=== PATIENT | female | born 1945 | race Caucasian/White ===

== ENCOUNTER → 2018-01-26 11:06 | Outpatient (REF) | payer MEDICARE, MEDICAID, SELFPAY ==
[2018-01-26 19:30] LABS: BUN 21 mg/dL (7-18); CREATININE 0.97 mg/dL (0.55-1.02); Calcium 9.2 mg/dL (8.5-10.1); Chloride 103 mmol/L (98-107); Cholesterol 255 mg/dL (50-200); Estimated GFR 56.77 (mL/min/1.73m2); Glucose 91 mg/dL (70-100); HDL Cholesterol 58 mg/dL (40-60); LDL CHOLESTEROL 189 mg/dL (<100); Potassium 5.2 mmol/L (3.5-5.1); Sodium 139 mmol/L (136-145); TSH 1.91 uIU/mL (0.358-3.74); Triglyceride 76 mg/dL (30-150)
== END ==
LOC: NCHCN 11:06
PROVIDERS: PCP Physician Assistant Medical; Visit Provider Physician Assistant Medical
DX: E03.9 Hypothyroidism, unspecified (principal); E78.5 Hyperlipidemia, unspecified
CPT/HCPCS: 80048; 80061; 83721; 84443

== ENCOUNTER 2018-11-06 09:40 | Outpatient (REF) | payer MEDICARE, MEDICAID, SELFPAY ==
[2018-11-06 23:11] LABS: Calculated LDL 159; Cholesterol 221 mg/dL (50-200); HDL Cholesterol 48 mg/dL (40-60); TSH 2.31 uIU/mL (0.358-3.74); Triglyceride 73 mg/dL (30-150)
== END 2018-11-06 10:00 ==
LOC: NCHCN 09:40
PROVIDERS: PCP Physician Assistant Medical; Visit Provider Physician Assistant Medical
DX: E03.9 Hypothyroidism, unspecified (principal); E78.5 Hyperlipidemia, unspecified
CPT/HCPCS: 80061; 83721; 84443

== ENCOUNTER 2019-10-07 17:06 | Observation (INO) | payer MEDICARE, MEDICAID, SELFPAY ==
[2019-10-07] VITALS (49 sets, daily range): BP systolic 136–188; BP diastolic 57–86; PULSE 78–109; RESP 13–27; TEMP 36.6–37; O2SAT 94–100
--- NOTE | 2019-10-07 17:10 | W.ED.GENAD ---
Discharge Plan Disposition Patient Disposition: [facility] INPATIENT Condition: Stable Discharge Details Chief Complaint: SOB Clinical Impression: Stable angina, Dyspnea on exertion Primary Care Provider: Dane Merino ED Provider: Skylar Lin Home Meds and New Rx's Prescriptions: No Action levothyroxine 25 MCG tablet 25 mcg PO DIRECTED RF: 0 levothyroxine 50 MCG tablet 50 mcg PO DIRECTED RF: 0 cholecalciferol (vitamin D3) 1,000 UNIT capsule 1,000 unit PO DAILY RF: 0 Medical Decision Making 1719 -- 74yo F w/ a h/o hypothyroidism who presents to the ED with a complaint of intermittent aching chest pain and dyspnea on exertion for the past 2 weeks. Patient denies any acute complaints at this time. EKG on arrival notes a rate of 84, sinus with no acute ST ischemic changes. History most concerning for stable angina. Considering patient's age and history, cardiac work-up ordered including CT chest and will plan for admission for serial troponins and possible stress test. Patient is agreeable for admission. Dose of aspirin ordered. 1919 --labs and imaging reviewed and unremarkable. Troponin negative. BNP and TSH within normal limits. CT chest negative. Patient reassessed and has no acute complaints. She is agreeable with plan for admission. Case discussed with hospitalist who accepts patient for admission. Tentative plan is for stress test in the a.m. Medical Records Medical records reviewed: Yes I reviewed the patient's medical records. Imaging Data Radiologic Study: Radiologist's impression: Laboratory Tests Range/Units 10/07/19 10/07/19 10/07/19 17:30 17:30 17:30 WBC (4.4-10.8) k/cumm 8.27 RBC (4.00-5.20) m/cumm 4.31 Hgb (12.0-15.5) g/dL 13.1 Hct (36.0-46.0) % 39.2 MCV (80-95) fL 91.0 MCH (27.0-33.0) pg 30.4 MCHC (32.0-36.0) g/dL 33.4 RDW (11.7-14.6) % 13.1 Plt Count (130-400) x1000/uL 217 MPV (8.0-11.0) fL 10.4 Immature Gran % % 0.0 Neutrophils % 43.0 Lymphocytes % 43.0 Atypical Lymphs % 5 Monocytes % 6.0 Eosinophils % 2.0 Basophils % 1.0 Absolute Neutrophils (1.2-6.7) k/cumm 3.56 Absolute Lymphocytes (1.2-3.4) k/cumm 3.97 H Absolute Monocytes (0.11-0.7) k/cumm 0.50 Absolute Eosinophils (0.0-0.7) k/cumm 0.17 Absolute Basophils (0.0-0.2) k/cumm 0.08 Differential Comment Manual differential RBC Morphology Normal Sodium (136-145) mmol/L 139 Potassium (3.5-5.1) mmol/L 3.9 Chloride (98-107) mmol/L 104 Carbon Dioxide (21.0-32.0) mmol/L 29.2 Anion Gap (3-11) mmol/L 5.8 BUN (7-18) mg/dL 16 Creatinine (0.55-1.02) mg/dL 1.03 H Estimated GFR/1.73 m2 (mL/min/1.73m2) 52.67 Glucose (74-106) mg/dL 110 H Calcium (8.5-10.1) mg/dL 9.1 Magnesium (1.8-2.4) mg/dL 2.1 Total Bilirubin (0.2-1.0) mg/dL 0.3 AST (15-37) U/L 14 L ALT (14-59) U/L 21 Alkaline Phosphatase (46-116) U/L 98 Troponin I (<0.06) ng/Ml < 0.05 NT-Pro-B Natriuret Pep (<300) pg/mL 198 Total Protein (6.4-8.2) g/dL 7.4 Albumin (3.4-5.0) g/dL 3.8 TSH (0.36-3.74) uIU/mL 2.21 Urine Color (Yellow) Urine Clarity (Clear) Urine pH (5-8) Ur Specific [place] (1.005-1.025) Urine Protein (Negative) mg/dL Urine Ketones (Negative) mg/dL Urine Blood (Negative) Urine Nitrite (Negative) Urine Bilirubin (Negative) Urine Urobilinogen (Up TO 0.2) EU/dL Ur Leukocyte Esterase (Negative) Urine RBC (0-2) HPF Urine WBC (0-5) HPF Ur Epithelial Cells (Negative) HPF Urine Crystals (Negative) HPF Urine Bacteria (Negative) HPF Urine Casts (Negative) LPF Urine Mucus (Negative) Ur Culture Indicated? Urine Glucose (Negative) mg/dL Range/Units 10/07/19 18:45 WBC (4.4-10.8) k/cumm RBC (4.00-5.20) m/cumm Hgb (12.0-15.5) g/dL Hct (36.0-46.0) % MCV (80-95) fL MCH (27.0-33.0) pg MCHC (32.0-36.0) g/dL RDW (11.7-14.6) % Plt Count (130-400) x1000/uL MPV (8.0-11.0) fL Immature Gran % % Neutrophils % Lymphocytes % Atypical Lymphs % Monocytes % Eosinophils % Basophils % Absolute Neutrophils (1.2-6.7) k/cumm Absolute Lymphocytes (1.2-3.4) k/cumm Absolute Monocytes (0.11-0.7) k/cumm Absolute Eosinophils (0.0-0.7) k/cumm Absolute Basophils (0.0-0.2) k/cumm Differential Comment RBC Morphology Sodium (136-145) mmol/L Potassium (3.5-5.1) mmol/L Chloride (98-107) mmol/L Carbon Dioxide (21.0-32.0) mmol/L Anion Gap (3-11) mmol/L BUN (7-18) mg/dL Creatinine (0.55-1.02) mg/dL Estimated GFR/1.73 m2 (mL/min/1.73m2) Glucose (74-106) mg/dL Calcium (8.5-10.1) mg/dL Magnesium (1.8-2.4) mg/dL Total Bilirubin (0.2-1.0) mg/dL AST (15-37) U/L ALT (14-59) U/L Alkaline Phosphatase (46-116) U/L Troponin I (<0.06) ng/Ml NT-Pro-B Natriuret Pep (<300) pg/mL Total Protein (6.4-8.2) g/dL Albumin (3.4-5.0) g/dL TSH (0.36-3.74) uIU/mL Urine Color (Yellow) Yellow Urine Clarity (Clear) Clear Urine pH (5-8) 7.0 Ur Specific [place] (1.005-1.025) 1.020 Urine Protein (Negative) mg/dL Negative Urine Ketones (Negative) mg/dL Negative Urine Blood (Negative) Trace-intact H Urine Nitrite (Negative) Negative Urine Bilirubin (Negative) Negative Urine Urobilinogen (Up TO 0.2) EU/dL 0.2 Ur Leukocyte Esterase (Negative) Negative Urine RBC (0-2) HPF 0-2 Urine WBC (0-5) HPF Negative Ur Epithelial Cells (Negative) HPF Rare Urine Crystals (Negative) HPF Negative Urine Bacteria (Negative) HPF Negative Urine Casts (Negative) LPF Negative Urine Mucus (Negative) Negative Ur Culture Indicated? No Urine Glucose (Negative) mg/dL Negative CT Angiography Chest With Contrast Exam date and time: 10/07/2019 5:53 PM Age: 74 years old Clinical indication: Other: Aching chest pain, SOB w/exertion TECHNIQUE: Imaging protocol: Computed tomographic angiography of the chest with intravenous contrast. 3D rendering: MIP and/or 3D reconstructed images were created by the technologist. Radiation optimization: All CT scans at this facility use at least one of these dose optimization techniques: automated exposure control; mA and/or kV adjustment per patient size (includes targeted exams where dose is matched to clinical indication); or iterative reconstruction. Contrast material: OMNIPAQUE 350; Contrast volume: 57 ml; Contrast route: IV; COMPARISON: No relevant prior studies available. FINDINGS: Pulmonary arteries: No acute pulmonary embolus. Aorta: No aortic aneurysm. No aortic dissection. Lungs: No consolidation. No masses. Pleural space: Biapical pleural parenchymal thickening/scarring. Heart: No cardiomegaly. No pericardial effusion. Lymph nodes: Unremarkable. No enlarged lymph nodes. Bones/joints: No acute fracture. Soft tissues: Unremarkable. IMPRESSION: No acute pulmonary embolus. Lab Data Lab results reviewed: Yes I reviewed the patient's lab results. Labs: Laboratory Tests Range/Units 10/07/19 10/07/19 10/07/19 17:30 17:30 17:30 WBC (4.4-10.8) k/cumm 8.27 RBC (4.00-5.20) m/cumm 4.31 Hgb (12.0-15.5) g/dL 13.1 Hct (36.0-46.0) % 39.2 MCV (80-95) fL 91.0 MCH (27.0-33.0) pg 30.4 MCHC (32.0-36.0) g/dL 33.4 RDW (11.7-14.6) % 13.1 Plt Count (130-400) x1000/uL 217 MPV (8.0-11.0) fL 10.4 Immature Gran % % 0.0 Neutrophils % 43.0 Lymphocytes % 43.0 Atypical Lymphs % 5 Monocytes % 6.0 Eosinophils % 2.0 Basophils % 1.0 Absolute Neutrophils (1.2-6.7) k/cumm 3.56 Absolute Lymphocytes (1.2-3.4) k/cumm 3.97 H Absolute Monocytes (0.11-0.7) k/cumm 0.50 Absolute Eosinophils (0.0-0.7) k/cumm 0.17 Absolute Basophils (0.0-0.2) k/cumm 0.08 Differential Comment Manual differential RBC Morphology Normal Sodium (136-145) mmol/L 139 Potassium (3.5-5.1) mmol/L 3.9 Chloride (98-107) mmol/L 104 Carbon Dioxide (21.0-32.0) mmol/L 29.2 Anion Gap (3-11) mmol/L 5.8 BUN (7-18) mg/dL 16 Creatinine (0.55-1.02) mg/dL 1.03 H Estimated GFR/1.73 m2 (mL/min/1.73m2) 52.67 Glucose (74-106) mg/dL 110 H Calcium (8.5-10.1) mg/dL 9.1 Magnesium (1.8-2.4) mg/dL 2.1 Total Bilirubin (0.2-1.0) mg/dL 0.3 AST (15-37) U/L 14 L ALT (14-59) U/L 21 Alkaline Phosphatase (46-116) U/L 98 Troponin I (<0.06) ng/Ml < 0.05 NT-Pro-B Natriuret Pep (<300) pg/mL 198 Total Protein (6.4-8.2) g/dL 7.4 Albumin (3.4-5.0) g/dL 3.8 TSH (0.36-3.74) uIU/mL 2.21 Urine Color (Yellow) Urine Clarity (Clear) Urine pH (5-8) Ur Specific [place] (1.005-1.025) Urine Protein (Negative) mg/dL Urine Ketones (Negative) mg/dL Urine Blood (Negative) Urine Nitrite (Negative) Urine Bilirubin (Negative) Urine Urobilinogen (Up TO 0.2) EU/dL Ur Leukocyte Esterase (Negative) Urine RBC (0-2) HPF Urine WBC (0-5) HPF Ur Epithelial Cells (Negative) HPF Urine Crystals (Negative) HPF Urine Bacteria (Negative) HPF Urine Casts (Negative) LPF Urine Mucus (Negative) Ur Culture Indicated? Urine Glucose (Negative) mg/dL Range/Units 10/07/19 18:45 WBC (4.4-10.8) k/cumm RBC (4.00-5.20) m/cumm Hgb (12.0-15.5) g/dL Hct (36.0-46.0) % MCV (80-95) fL MCH (27.0-33.0) pg MCHC (32.0-36.0) g/dL RDW (11.7-14.6) % Plt Count (130-400) x1000/uL MPV (8.0-11.0) fL Immature Gran % % Neutrophils % Lymphocytes % Atypical Lymphs % Monocytes % Eosinophils % Basophils % Absolute Neutrophils (1.2-6.7) k/cumm Absolute Lymphocytes (1.2-3.4) k/cumm Absolute Monocytes (0.11-0.7) k/cumm Absolute Eosinophils (0.0-0.7) k/cumm Absolute Basophils (0.0-0.2) k/cumm Differential Comment RBC Morphology Sodium (136-145) mmol/L Potassium (3.5-5.1) mmol/L Chloride (98-107) mmol/L Carbon Dioxide (21.0-32.0) mmol/L Anion Gap (3-11) mmol/L BUN (7-18) mg/dL Creatinine (0.55-1.02) mg/dL Estimated GFR/1.73 m2 (mL/min/1.73m2) Glucose (74-106) mg/dL Calcium (8.5-10.1) mg/dL Magnesium (1.8-2.4) mg/dL Total Bilirubin (0.2-1.0) mg/dL AST (15-37) U/L ALT (14-59) U/L Alkaline Phosphatase (46-116) U/L Troponin I (<0.06) ng/Ml NT-Pro-B Natriuret Pep (<300) pg/mL Total Protein (6.4-8.2) g/dL Albumin (3.4-5.0) g/dL TSH (0.36-3.74) uIU/mL Urine Color (Yellow) Yellow Urine Clarity (Clear) Clear Urine pH (5-8) 7.0 Ur Specific [place] (1.005-1.025) 1.020 Urine Protein (Negative) mg/dL Negative Urine Ketones (Negative) mg/dL Negative Urine Blood (Negative) Trace-intact H Urine Nitrite (Negative) Negative Urine Bilirubin (Negative) Negative Urine Urobilinogen (Up TO 0.2) EU/dL 0.2 Ur Leukocyte Esterase (Negative) Negative Urine RBC (0-2) HPF 0-2 Urine WBC (0-5) HPF Negative Ur Epithelial Cells (Negative) HPF Rare Urine Crystals (Negative) HPF Negative Urine Bacteria (Negative) HPF Negative Urine Casts (Negative) LPF Negative Urine Mucus (Negative) Negative Ur Culture Indicated? No Urine Glucose (Negative) mg/dL Negative ECG Data Attestation: I personally reviewed and interpreted this ECG (s) as follows: Interpretation: Rate of 84, sinus, no acute ST elevation or depression. SD 142. QTc 442. QRS 92. HPI General Mode of arrival: ambulatory. Date/Time Provider Initiated Documentation: 10/07/19 17:09. Limitations to Documentation: no limitations. Information obtained by: patient. HPI Narrative: Patient is a 74-year-old female with a history of hypothyroidism who presents with intermittent chest pain and shortness of breath with exertion over the past 2 weeks. Patient states that her chest pain is anterior, mostly mild in nature, and only occurs with significant exertion and associated with shortness of breath. She does state that the chest does feel sore to touch at times but she denies any known injury. She denies any fever, cough, nausea, vomiting or dizziness. She denies any recent travel or known sick contacts. She denies any leg pain or swelling. Related Data Home Medications Medication Instructions Recorded Confirmed cholecalciferol (vitamin D3) 1,000 unit PO DAILY 06/13/13 10/07/19 levothyroxine 25 mcg PO DIRECTED 06/13/13 10/07/19 levothyroxine 50 mcg PO DIRECTED 06/13/13 10/07/19 Allergies Allergy/AdvReac Type Severity Reaction Status Date / Time No Known Allergies Allergy Unverified 10/07/19 17:16 Review of Systems All systems reviewed & are unremarkable except as noted in HPI and below Constitutional Constitutional: Reports as per HPI, Denies chills and Denies fever(s) Eyes Eyes: Denies blurry vision ENT Ears, Nose, Mouth, and Throat: Denies dizziness, Denies sore throat and Denies throat swelling Cardiovascular Cardiovascular: Reports chest pain and Reports dyspnea Respiratory Respiratory: Denies cough and Reports dyspnea Gastrointestinal Gastrointestinal: Denies abdominal pain, Denies diarrhea and Denies vomiting Genitourinary Genitourinary: Denies hematuria and Denies dysuria Musculoskeletal Musculoskeletal: Denies back pain and Denies numbness Integumentary/Breasts Skin/Breast: Denies lesions and Denies rash Neurologic Neurologic: Denies dizziness, Denies localized weakness and Denies numbness Allergic/Immunologic Allergic/Immunologic: Denies throat swelling [facility] Medical History Hypothyroidism (Chronic) Surgical History History of bilateral tubal ligation (Acute) Social History Smoking/Tobacco Use Status: Never Alcohol Intake: never Drug use: Never Substance use type: does not use Do you feel safe at home: Yes Exam Const General: cooperative, healthy appearing and no acute distress Orientation: alert, awake and oriented x3 HENMT Head: normal to inspection Ears: hearing grossly normal bilaterally and external ears normal General nose exam: external nose normal Face and sinus: normal facial exam Mouth: oral mucosae normal Teeth and gingiva: dentition normal Throat: posterior oropharynx normal Eyes General: appearance normal, both eyes and all related structures Eyelids: eyelids normal EOM: EOM intact bilaterally Neck Neck: normal visual inspection Lymphatic: no lymphadenopathy noted Chest Chest: normal inspection of the chest Resp Effort & Inspection: normal respiratory effort and able to speak in complete sentences Auscultation: clear to auscultation bilaterally Cardio Rate: regular rate Rhythm: regular rhythm GI Inspection: normal to inspection Palpation: soft, not firm, no guarding, no hepatosplenomegaly, no masses and nontender Auscultation: normal bowel sounds Skin General skin exam: no rashes or lesions noted Neuro General: patient alert and patient awake Cognition: normal cognition Speech: speech normal Gait: normal gait Motor: muscle tone normal throughout Sensory Exam: no sensory deficits noted Extrem General: normal to inspection, full ROM and capillary refill normal Psych Appearance: grossly normal Mental Status: mental status grossly normal Speech and Movement: speech and movement normal Affect: normal affect Thought Process: normal
[2019-10-07 18:12] LABS: HCT 39.2 % (36.0-46.0); HGB 13.1 g/dL (12.0-15.5); Mean Corp. HGB Concentration 33.4 g/dL (32.0-36.0); Mean Corpuscular Hemoglobin 30.4 pg (27.0-33.0); Mean Platelet Volume 10.4 fL (8.0-11.0); Platelet Count 217 x1000/uL (130-400); RBC 4.31 m/cumm (4.00-5.20); RBC Distribution Width 13.1 % (11.7-14.6); White Blood Cell Count 8.27 k/cumm (4.4-10.8)
[2019-10-07 18:29] LABS: ALT 21 U/L (14-59); AST 14 U/L (15-37); Albumin 3.8 g/dL (3.4-5.0); Alkaline Phosphatase 98 U/L (46-116); Anion Gap 5.8 mmol/L (3-11); BUN 16 mg/dL (7-18); Bilirubin, Total 0.3 mg/dL (0.2-1.0); CO2 29.2 mmol/L (21.0-32.0); CREATININE 1.03 mg/dL (0.55-1.02); Calcium 9.1 mg/dL (8.5-10.1); Chloride 104 mmol/L (98-107); Estimated GFR 52.67 (mL/min/1.73m2); Glucose 110 mg/dL (74-106); Magnesium 2.1 mg/dL (1.8-2.4); NT-proBNP 198 pg/mL (<300); Potassium 3.9 mmol/L (3.5-5.1); Sodium 139 mmol/L (136-145); Total Protein 7.4 g/dL (6.4-8.2)
[2019-10-07 18:30] LABS: TSH (W/Ref FT4) 2.21 uIU/mL (0.36-3.74); Troponin I < 0.05 ng/Ml (<0.06)
[2019-10-07] MEDS: Normal Saline 1,000 ML 1000 ML IV (18:32)
[2019-10-07] MEDS: Normal Saline Flush 10 ML SYR IVP ×3 (18:32→23:27)
[2019-10-07 18:42] LABS: Absolute Basophil Count 0.08 k/cumm (0.0-0.2); Absolute Eosinophil Count 0.17 k/cumm (0.0-0.7); Absolute Lymphocyte Count 3.97 k/cumm (1.2-3.4); Absolute Neutrophil Count 3.56 k/cumm (1.2-6.7); Atypical Lymphocytes % 5; Diff Comment Manual Differential; RBC Morphology Normal
--- NOTE | 2019-10-07 18:51 | DI.CT_ITS ---
EXAM: CT CHEST PE CTA CLINICAL HISTORY: aching chest pain, sob w/ exertion. TECHNIQUE: Imaging Protocol: Axial CT angiography was performed with multi-slice acquisition and mu lti-planar and/or 3D reconstructions. CONTRAST MATERIAL: Intravenous: Omnipaque 350 Contrast volume:57 ml COMPARISON: ABD PELVIS WITH CONTRAST from 10/30/2008 FINDINGS: Pulmonary Arteries: No evidence of filling defect to suggest pulmonary emboli. Tracheobronchial tree: Patent where visualized. Mediastinum and [place]: No dominant adenopathy or fluid collection. Pulmonary parenchyma: No consolidation or dominant measurable mass. Bi-apical pleural thickening and scarring.. Pleura: No effusion or pneumothorax. Heart: The heart is not dilated. Mild coronary artery calcifications are seen. Aorta: Thoracic aorta non-dilated. Mild aortic calcification. Upper abdomen: Unremarkable. Bones: Pectus excavatum deformity. Mild degenerative disc changes.. IMPRESSION: No evidence of pulmonary embolism or other acute abnormality. RADIATION DOSE DELIVERED: Total DLP DATA REPOSITORY: All CT scans at this facility are submitted to the National Radiology Data Registry (NRDR) Dose Index Registry (DIR) with the [employer] ([employer]). RADIATION OPTIMIZATION: All CT scans at this facility use at least one of these dose optimization te chniques: automated exposure control; mA and/or kV adjustment per patient size (includes targeted exa ms where dose is matched to clinical indication); or iterative reconstruction.
[2019-10-07] MEDS: Normal Saline - Diluent 50 ML VIAL IV (18:56)
[2019-10-07] MEDS: Omnipaque 350 MG/ML 100 ML BTL IJ (18:56)
[2019-10-07 18:57] LABS: Bilirubin Negative (Negative); Blood Trace-intact (Negative); Clarity Clear (Clear); Glucose Negative (Negative); Ketones Negative (Negative); Leukocyte Esterase Negative (Negative); Nitrite Negative (Negative); Urobilinogen 0.2 EU/dL (Up TO 0.2)
[2019-10-07 19:06] LABS: Bacteria Negative HPF (Negative); C & S Indicated? No; Casts Negative LPF (Negative); Crystals Negative HPF (Negative); Epithelial Cells Rare HPF (Negative); Mucus Negative (Negative); RBC 0-2 HPF (0-2); WBC Negative HPF (0-5)
--- NOTE | 2019-10-07 19:11 | DI.VRAD_ITS ---
PROCEDURE INFORMATION: Exam: CT Angiography Chest With Contrast Exam date and time: 10/07/2019 5:53 PM Age: 74 years old Clinical indication: Other: Aching chest pain, SOB w/exertion TECHNIQUE: Imaging protocol: Computed tomographic angiography of the chest with intravenous contrast. 3D rendering: MIP and/or 3D reconstructed images were created by the technologist. Radiation optimization: All CT scans at this facility use at least one of these dose optimization techniques: automated exposure control; mA and/or kV adjustment per patient size (includes targeted exams where dose is matched to clinical indication); or iterative reconstruction. Contrast material: OMNIPAQUE 350; Contrast volume: 57 ml; Contrast route: IV; COMPARISON: No relevant prior studies available. FINDINGS: Pulmonary arteries: No acute pulmonary embolus. Aorta: No aortic aneurysm. No aortic dissection. Lungs: No consolidation. No masses. Pleural space: Biapical pleural parenchymal thickening/scarring. Heart: No cardiomegaly. No pericardial effusion. Lymph nodes: Unremarkable. No enlarged lymph nodes. Bones/joints: No acute fracture. Soft tissues: Unremarkable. IMPRESSION: No acute pulmonary embolus. Dictated and Authenticated by: Uday Mullins MD. Ordering:KRISTIN Cheng MD
--- NOTE | 2019-10-07 19:38 | W.PM.HP.N ---
Date of service: 10/07/19 Time of Service: 19:38 Assessment and Plan Assessment and plan (1) Chest pain: Status: Acute Assessment and plan: CP, good story for new onset angina. Will give dose ASA, trend troponin and will plan on stress test. Patient advised to let us know if she has any rest pain. History of Present Illness History of Present Illness Chief Complaint: CP Narrative: 74 female reports 2 weeks of exertional CP (pressure) associated with SOB. No nausea, diaphoresis or radiation. Pain comes on with such activities as yard work or walking up an incline. Resolves with rest. Episodes more frequent past few days so came in for evaluation. In ER findings of note for normal EKG, negative troponin and negative CTA of chest. Admitted for further evaluation Review of Systems All systems reviewed & are unremarkable except as noted in HPI and below PFSH Medical History Hypothyroidism (Chronic) Surgical History History of bilateral tubal ligation (Acute) Social History Smoking/Tobacco Use Status: Never Alcohol Intake: never Drug use: Never Substance use type: does not use Do you feel safe at home: Yes Meds Home Medications and Allergies Home Medications Medication Instructions Recorded Confirmed Type cholecalciferol (vitamin D3) 1,000 unit PO DAILY 06/13/13 10/07/19 History levothyroxine 25 mcg PO DIRECTED 06/13/13 10/07/19 History levothyroxine 50 mcg PO DIRECTED 06/13/13 10/07/19 History Allergies Allergy/AdvReac Type Severity Reaction Status Date / Time No Known Allergies Allergy Unverified 10/07/19 17:16 Exam Narrative Exam Narrative: 161/75, 85, 37, 16, 97% RA. HEENT unremarkable; neck supple w/o JVD; lungs clear; heart RRR w/o MRG; abdomen soft and NT; extremities w/o edema, pulses 2+/=; neuro Ox3, non-focal Results Labs Result diagrams: 10/07/19 17:30 10/07/19 17:30 Labs: Laboratory Results - last 24 hr 10/07/19 10/07/19 10/07/19 17:30 17:30 17:30 WBC 8.27 RBC 4.31 Hgb 13.1 Hct 39.2 MCV 91.0 MCH 30.4 MCHC 33.4 RDW 13.1 Plt Count 217 MPV 10.4 Immature Gran % 0.0 Neutrophils % 43.0 Lymphocytes % 43.0 Atypical Lymphs % 5 Monocytes % 6.0 Eosinophils % 2.0 Basophils % 1.0 Absolute Neutrophils 3.56 Absolute Lymphocytes 3.97 H Absolute Monocytes 0.50 Absolute Eosinophils 0.17 Absolute Basophils 0.08 Differential Comment Manual differential RBC Morphology Normal Sodium 139 Potassium 3.9 Chloride 104 Carbon Dioxide 29.2 Anion Gap 5.8 BUN 16 Creatinine 1.03 H Estimated GFR/1.73 m2 52.67 Glucose 110 H Calcium 9.1 Magnesium 2.1 Total Bilirubin 0.3 AST 14 L ALT 21 Alkaline Phosphatase 98 Troponin I < 0.05 NT-Pro-B Natriuret Pep 198 Total Protein 7.4 Albumin 3.8 TSH 2.21 Urine Color Urine Clarity Urine pH Ur Specific [place] Urine Protein Urine Ketones Urine Blood Urine Nitrite Urine Bilirubin Urine Urobilinogen Ur Leukocyte Esterase Urine RBC Urine WBC Ur Epithelial Cells Urine Crystals Urine Bacteria Urine Casts Urine Mucus Ur Culture Indicated? Urine Glucose 10/07/19 18:45 WBC RBC Hgb Hct MCV MCH MCHC RDW Plt Count MPV Immature Gran % Neutrophils % Lymphocytes % Atypical Lymphs % Monocytes % Eosinophils % Basophils % Absolute Neutrophils Absolute Lymphocytes Absolute Monocytes Absolute Eosinophils Absolute Basophils Differential Comment RBC Morphology Sodium Potassium Chloride Carbon Dioxide Anion Gap BUN Creatinine Estimated GFR/1.73 m2 Glucose Calcium Magnesium Total Bilirubin AST ALT Alkaline Phosphatase Troponin I NT-Pro-B Natriuret Pep Total Protein Albumin TSH Urine Color Yellow Urine Clarity Clear Urine pH 7.0 Ur Specific [place] 1.020 Urine Protein Negative Urine Ketones Negative Urine Blood Trace-intact H Urine Nitrite Negative Urine Bilirubin Negative Urine Urobilinogen 0.2 Ur Leukocyte Esterase Negative Urine RBC 0-2 Urine WBC Negative Ur Epithelial Cells Rare Urine Crystals Negative Urine Bacteria Negative Urine Casts Negative Urine Mucus Negative Ur Culture Indicated? No Urine Glucose Negative Last Vital Signs Temp 37 C 10/07/19 19:15 Pulse 85 10/07/19 19:15 Resp 16 10/07/19 19:15 BP 161/75 H 10/07/19 19:15 Pulse Ox 97 10/07/19 19:15 COVID-19 Screening Traveled to [place] from one of the affected countries or regions?: NO Recent travel in the [place] within the last 14 days?: No Recent out of the country travel within the last 14 days?: No Exposure or possible exposure to illness during travel?: No Had IN PERSON contact w/suspected or confirmed C-19 person: No Have you had the following symptoms in the past few days?: Yes Symptoms noted since travel?: Lower Respiratory
[2019-10-07] MEDS: Aspirin 325 MG TAB PO (19:43)
--- NOTE | 2019-10-07 20:55 | NUR.NOTE ---
pt proved with sandwich and soda Nursing Note:
[2019-10-07] MEDS: Mylanta Suspension 30 ML CUP PO (22:02)
[2019-10-07] MEDS: Pantoprazole 40 MG VIAL IVP (23:26)
[2019-10-07 23:31] LABS: PTT Activated 26.5 sec (21.0-31.4)
[2019-10-08] VITALS (87 sets, daily range): BP systolic 121–171; BP diastolic 55–71; PULSE 70–103; RESP 13–26; TEMP 35.5–37.1; O2SAT 95–99
--- NOTE | 2019-10-08 | ETT_ITS ---
APPROVED REPORT Exam: Exercise Treadmill Patient Location: In-Patient Room/Bed: 220 Stress Nurse: Tamanna Ly RN BMI: 21.48 Baseline Rhythm: Sinus Rhythm Comment: Abnormal R wave progression, early transition Indications: Chest pain. Medical History Medical History: Angina Allergies: No known drug allergies Cardiac Risk Factors: Hypothyroidism Exercise History: Physically active Lung Sounds: Clear to auscultation Heart Sounds: Regular Stress Test Details Test: Exercise stress testing was performed using a Jeff protocol. Rest Stress HR Resting HR Supine: 78 bpm Max Heart Rate (APMHR): 148 bpm Resting HR Standin bpm Target HR (85% APMHR): 125 bpm Max HR Achieved: 133 bpm % of APMHR: 89 HR response to stress: Normal HR response to stress BP Resting BP Supine: 174/82 mmHg Resting BP Standin/78 mmHg Max BP: 180/68 mmHg Recovery BP: 172/70 mmHg BP response to stress: Normal blood pressure response to stress. Comment: Hypertensive BP's pre-exercise. ECG Resting ECG: Sinus Rhythm Comment: Abnormal R-wave progression, early transition Stress ECG: Sinus Tachycardia ST Change: Horizontal ST depression Lead(s): V3, V4, V5 Stage: Exercise stage 2 and immediate recovery Arrhythmia: None Recovery ECG: Sinus Rhythm Recovery ST Change: Horizontal to downward sloping ST depressions during immediate recovery Lead(s): V3, V4, V5 Recovery Arrhythmia: None Clinical Reason for Termination: Fatigue, Chest pain/Anginal equivalent Stress Symptoms: Chest pain, General Fatigue Exercise duration: 6 min31 sec Highest Stage Reached: Stage 2: 2.5 mph at 12% grade. Exercise capacity: 7.81 METs Functional Capacity: Above average capacity Stress ECG Conclusion 1. Patient exercised on the Jeff protocol and completed a workload of 7.8 METS. She experienced kyle st discomfort consistent with angina at end exercise relieved immediately with rest 2. Resting hypertension. Normal heart rate and blood pressure response to exercise 3. The patient achieved 89 percent of predicted heart rate for age. Electrocardiographically the hossein t was positive for myocardial ischemia with ST depression and exercise noted in the inferior and ante rolateral leads. The ST segments became downsloping in recovery 4. There were no significant dysrhythmias Stress Test Summary STAGE Time (mins) Speed (mph) Grade (%) HR BP SYMPTOMS METS Supine 78 174/82 Standing 85 166/78 1 3 1.7 10 114 178/70 4.6 2 6 2.5 12 129 6 out of 10 chest pressure during maximum exercise. 7 1 min recovery 109 180/68 Chest pressure subsided immediately upon rest. 3 min recovery 94 176/74 6 min recovery 87 172/70
[2019-10-08 06:43] LABS: PTT Activated 45.1 sec (21.0-31.4)
[2019-10-08 06:55] LABS: Troponin I < 0.05 ng/Ml (<0.06)
[2019-10-08 08:31] LABS: COVID-19 RT-PCR UVMMC Result Negative (Negative)
--- NOTE | 2019-10-08 09:04 | INITIAL_ITS ---
- If Service Date Differs Date of service: 10/08/19 Time of Service: 09:04 Care Management Initial Assess REASON FOR HOSPITALIZATION:: Chest Pain PAST MEDICAL HISTORY/PAST SURGICAL HISTORY:: Stable angina, hypothyroidism, Surgical bilateral tubal ligation PREVIOUS FUNCTIONAL STATUS/SOCIAL/FAMILY SUPPORTS:: Colleen lives alone in a mobil home in [place], [place] she has three grown sons that are supportive and six grandchildren. She states that she does not leave the home, her daughter in law has been shopping for her. She is retired she does not have any animals or anyone living in her home. She reports she is independent with meals and transportation. CURRENT FUNCTIONAL STATUS:: Colleen is sitting up in the chair she states she slept well last night. She states she is not having any more chest pain. She is wa iting the results of her stress test and is hopeful she will be able to return home. She states that her primary care is [facility] and she drives herself to her appointments. She was sent to the hospital by her provider due to chest pain and to have a COVID swab. ADVANCE DIRECTIVES:: None on file she states they are complete and she will bring down a copy. Has patient been provided with information about the portal?: Yes Did the patient sign up for the portal?: No CODE STATUS:: Full Code INSURANCE COVERAGE / FINANCIAL ISSUES:: Medicare and Medicaid CURRENT HOME/COMMUNITY SERVICES/EQUIPMENT:: No current services PRIMARY CARE PHYSICIAN:: [facility] POTENTIAL DISCHARGE NEEDS:: Follow up with primary care as directed. PATIENT/FAMILY EDUCATION NEEDS:: Discharge instructions, limitations and follow up plan of care including ask me three and self management ANTICIPATED BARRIERS TO DISCHARGE:: No identified barriers TRANSPORTATION:: Via private car self at time of discharge PLAN:: Colleen will be discharged home when medically ready she will transport herself home via private car at [facility]. CM will continue to assess for discharge needs.
--- NOTE | 2019-10-08 10:34 | PGE_ITS ---
Date of Service Date of service: 10/08/19 Time of Service: 10:34 Assessment and Plan Assessment and plan (1) Chest pain: Status: Acute Assessment and plan: Mixed picture with some typical features including exertional chest pressure this relieved with rest and precipitated by housework or yardwork. This is suggestive of angina. However she also has a secondary feature of epigastric discomfort and belching after meals that is relieved by antacids suggestive of either peptic ulcer disease or GERD. I discontinued her heparin drip this morning since her third troponin was negative and her EKG has shown no ischemic changes. I will put her on a PPI and check a GXT treadmill stress test. If the GXT is negative I will discharge her home on a PPI. She should have a lipid profile and a glycohemoglobin A1c to assess her risk factors for vascular disease. I will add these to her morning labs. Qualifiers: Chest pain type: unspecified Qualified Code(s): R07.9 - Chest pain, unspecified Subjective Subjective Interval history since last seen: 74-year-old female presents emergency department last night with exertional chest pain of intermittent o ccurrence with physical activities such as yardwork or housework this been going on for the last 2 weeks. Chest pain was relieved with nitroglycerin last night. There is no acute ischemic ST or T wave EKG changes. Initial troponin was less than 0.05 however she had a small episode of epigastric discomfort last night that was relieved with antiacids. Her second troponin came back indeterminate at 0.10 but the third troponin came back less than 0.05. She has had no further chest pain since admission. Screening COVID-19 test was negative. Cardiac risk factors include multiple family members with coronary artery disease including her mother her maternal grandmother as well as her brother. However all these family members were in their 70s or 80s. Patient's never smoked and does not have hypertension or diabetes mellitus or hyperlipidemia to the best of her knowledge. She is currently pain-free has no dyspnea. She does describe intermittent episodes for the last several weeks of epigastric discomfort after meals and a lot of belching. Patient is currently scheduled for GXT stress test this morning. I explained her that if this is normal she will be discharged home for follow-up with her PCP to have further evaluation looking for possible GERD. If it is abnormal then I will address this with her and will decide the next step which would include referral for cardiac cath eterization. Exam Narrative Exam Narrative: Older petite female who is alert and oriented person place time circumstance. Neck is nontender no JVD normal carotid pulses. Lungs are clear to auscultation. Heart is regular rate and rhythm without murmur rub or gallop. Abdomen soft with some mild epigastric tenderness no guarding or rebound tenderness normal active bowel sounds. Objective Objective Clinical Data: Abnormal lab results 10/07/19 10/07/19 10/07/19 Range/Units 17:30 17:30 18:45 Absolute Lymphocytes 3.97 H (1.2-3.4) k/cumm APTT (21.0-31.4) sec Creatinine 1.03 H (0.55-1.02) mg/dL Glucose 110 H (74-106) mg/dL AST 14 L (15-37) U/L Troponin I (<0.06) ng/Ml Urine Blood Trace-intact H (Negative) 10/07/19 10/08/19 Range/Units 20:30 06:05 Absolute Lymphocytes (1.2-3.4) k/cumm APTT 45.1 H D (21.0-31.4) sec Creatinine (0.55-1.02) mg/dL Glucose (74-106) mg/dL AST (15-37) U/L Troponin I 0.10 H* (<0.06) ng/Ml Urine Blood (Negative) Vital Signs Temperature 37.1 C 10/08/19 08:20 Temperature Source Temporal Artery Scan 10/08/19 08:20 Pulse 79 10/08/19 08:20 Pulse Rhythm Regular 10/08/19 00:02 Pulse 83 10/07/19 23:10 Respiratory Rate 16 10/08/19 08:20 Respiratory Effort Non-Labored 10/08/19 00:02 Respiratory Depth Normal 10/08/19 00:02 Respiratory Pattern Normal 10/08/19 00:02 Blood Pressure 149/63 H 10/08/19 08:20 Blood Pressure Mean 94 10/07/19 23:01 Blood Pressure Position Supine 10/07/19 21:20 Pulse Oximetry 97 10/08/19 08:20 Oxygen Delivery Method Room Air 10/08/19 08:20 Oxygen Flow Rate 0 05/05/20 08:20 Pain Level 0 10/08/19 08:20 Intake & Output 10/07/19 10/07/19 10/08/19 11:59 23:59 11:59 Intake Total 1010 / 1010 163.592 / 163.592 Output Total 450 / 450 500 / 500 Balance 560 / 560 -336.408 / -336.408 Weight 49.6 kg Intake: IV 1010 / 1010 63.592 / 63.592 Oral 100 / 100 Output: Urine 450 / 450 500 / 500 Other: Urine Color Yellow Yellow Urine Appearance Clear Clear Urine Odor None Normal Voiding Methods Bedside Commode Bedside Commode # Voids 2 Laboratory Results WBC 8.27 k/cumm (4.4-10.8) 10/07/19 17:30 RBC 4.31 m/cumm (4.00-5.20) 10/07/19 17:30 Hgb 13.1 g/dL (12.0-15.5) 10/07/19 17:30 Hct 39.2 % (36.0-46.0) 10/07/19 17:30 MCV 91.0 fL (80-95) 10/07/19 17:30 MCH 30.4 pg (27.0-33.0) 10/07/19 17:30 MCHC 33.4 g/dL (32.0-36.0) 10/07/19 17:30 RDW 13.1 % (11.7-14.6) 10/07/19 17:30 Plt Count 217 x1000/uL (130-400) 10/07/19 17:30 MPV 10.4 fL (8.0-11.0) 10/07/19 17:30 Immature Gran % 0.0 % 10/07/19 17:30 Neutrophils % 43.0 10/07/19 17:30 Lymphocytes % 43.0 10/07/19 17:30 Atypical Lymphs % 5 10/07/19 17:30 Monocytes % 6.0 10/07/19 17:30 Eosinophils % 2.0 10/07/19 17:30 Basophils % 1.0 10/07/19 17:30 Absolute Neutrophils 3.56 k/cumm (1.2-6.7) 10/07/19 17:30 Absolute Lymphocytes 3.97 k/cumm (1.2-3.4) H 10/07/19 17:30 Absolute Monocytes 0.50 k/cumm (0.11-0.7) 10/07/19 17:30 Absolute Eosinophils 0.17 k/cumm (0.0-0.7) 10/07/19 17:30 Absolute Basophils 0.08 k/cumm (0.0-0.2) 10/07/19 17:30 Differential Comment Manual differential 10/07/19 17:30 RBC Morphology Normal 10/07/19 17:30 APTT 45.1 sec (21.0-31.4) H D 10/08/19 06:05 Sodium 139 mmol/L (136-145) 10/07/19 17:30 Potassium 3.9 mmol/L (3.5-5.1) 10/07/19 17:30 Chloride 104 mmol/L (98-107) 10/07/19 17:30 Carbon Dioxide 29.2 mmol/L (21.0-32.0) 10/07/19 17:30 Anion Gap 5.8 mmol/L (3-11) 10/07/19 17:30 BUN 16 mg/dL (7-18) 10/07/19 17:30 Creatinine 1.03 mg/dL (0.55-1.02) H 10/07/19 17:30 Estimated GFR/1.73 m2 52.67 (mL/min/1.73m2) 10/07/19 17:30 Glucose 110 mg/dL (74-106) H 10/07/19 17:30 Calcium 9.1 mg/dL (8.5-10.1) 10/07/19 17:30 Magnesium 2.1 mg/dL (1.8-2.4) 10/07/19 17:30 Total Bilirubin 0.3 mg/dL (0.2-1.0) 10/07/19 17:30 AST 14 U/L (15-37) L 10/07/19 17:30 ALT 21 U/L (14-59) 10/07/19 17:30 Alkaline Phosphatase 98 U/L (46-116) 10/07/19 17:30 Troponin I < 0.05 ng/Ml (<0.06) 10/08/19 06:05 NT-Pro-B Natriuret Pep 198 pg/mL (<300) 10/07/19 17:30 Total Protein 7.4 g/dL (6.4-8.2) 10/07/19 17:30 Albumin 3.8 g/dL (3.4-5.0) 10/07/19 17:30 TSH 2.21 uIU/mL (0.36-3.74) 10/07/19 17:30 Urine Color Yellow (Yellow) 10/07/19 18:45 Urine Clarity Clear (Clear) 10/07/19 18:45 Urine pH 7.0 (5-8) 10/07/19 18:45 Ur Specific [place] 1.020 (1.005-1.025) 10/07/19 18:45 Urine Protein Negative mg/dL (Negative) 10/07/19 18:45 Urine Ketones Negative mg/dL (Negative) 10/07/19 18:45 Urine Blood Trace-intact (Negative) H 10/07/19 18:45 Urine Nitrite Negative (Negative) 10/07/19 18:45 Urine Bilirubin Negative (Negative) 10/07/19 18:45 Urine Urobilinogen 0.2 EU/dL (Up TO 0.2) 10/07/19 18:45 Ur Leukocyte Esterase Negative (Negative) 10/07/19 18:45 Urine RBC 0-2 HPF (0-2) 10/07/19 18:45 Urine WBC Negative HPF (0-5) 10/07/19 18:45 Ur Epithelial Cells Rare HPF (Negative) 10/07/19 18:45 Urine Crystals Negative HPF (Negative) 10/07/19 18:45 Urine Bacteria Negative HPF (Negative) 10/07/19 18:45 Urine Casts Negative LPF (Negative) 10/07/19 18:45 Urine Mucus Negative (Negative) 10/07/19 18:45 Ur Culture Indicated? No 10/07/19 18:45 Urine Glucose Negative mg/dL (Negative) 10/07/19 18:45 COVID-19 PCR Negative (Negative) 10/07/19 18:30 Nasopharyn COVID-19 PCR Not Applicable 10/07/19 18:30 Ref Test Perform Site [facility] hospital lab 10/07/19 18:30
[2019-10-08 11:30] LABS: Calculated LDL 166 mg/dL (<100); Cholesterol 227 mg/dL (<200); HDL Cholesterol 53 mg/dL (40-60); Triglyceride 40 mg/dL (<150)
[2019-10-08 11:40] LABS: Hemoglobin A1C 5.9 % (3.8-5.6)
--- NOTE | 2019-10-08 15:33 | CHAPLAIN ---
Colleen said she expects to be discharged later today. She lives in [place] but came to [facility] because her PCP is at [facility].
[2019-10-08] MEDS: Aspirin 81 MG CHEW 162 MG PO (22:03)
[2019-10-08] MEDS: Atorvastatin 40 MG TAB 80 MG PO (22:03)
[2019-10-08] MEDS: Mylanta Suspension 30 ML CUP PO (22:03)
[2019-10-08] MEDS: Metoprolol 12.5 MG TAB PO (22:03)
--- NOTE | 2019-10-08 23:02 | NUR.NOTE ---
0139- DR. Guzman has come back in to talk to pt concerning her abnormal stress test. New medications have been ordered and given to the pt and DR. Guzman has stated that [facility] would be called in the morning
[2019-10-09] VITALS (7 sets, daily range): BP systolic 145–171; BP diastolic 58–77; PULSE 68–85; RESP 13–21; TEMP 36.3–37.1; O2SAT 97–99
[2019-10-09] MEDS: Levothyroxine 50 MCG TAB PO (06:27)
[2019-10-09] MEDS: Metoprolol 12.5 MG TAB PO ×2 (06:27→13:32)
[2019-10-09] MEDS: Aspirin E.C. 81 MG TABEC PO (10:33)
--- NOTE | 2019-10-09 11:51 | PGE_ITS ---
Date of Service Date of service: 10/09/19 Time of Service: 11:51 Assessment and Plan Assessment and plan (1) Stable angina: Status: Acute Assessment and plan: Continue secondary risk reduction including. Continue aspirin and beta-blockers. Use nitroglycerin as needed chest pain. (2) Abnormal stress test: Status: Acute Assessment and plan: Transferred to [facility] for further cardiology evaluation including probable cardiac catheterization Subjective Subjective Interval history since last seen: Patient has had no chest pains overnight. Repeat EKG this a.m. did not demonstrate any ischemic or injury patterns. I spoke w/ [facility] cardiology, I spoke w/ Sasha Avilez, nurse practitioner for farm machinery engine mechanic, Dr. Ricks. Initially they were wanting more imaging including a SPECT study despite the patient having classic anginal symptoms which were reproducible on treadmill ETT w/ lateral ST-T changes associated w/ CP in an adequate stress test (Jeff protocol stage 2, 6 minutes 31 seconds achieving 7.8 METs, reaching 89% of her predicted maximal HR. They wanted an echo which was done this moring and sent to [facility]. They are now accepting her for transfer to [facility] for either cardiac cath or they may repeat stress w/ MPI or stress echo. I feel that she just needs cath to evaluate her coronary anatomy and possibly needs PCI. She is agreeable to go to [facility] and have a cath done. She has been accepted to service of Dr. Lerner pending bed availablity. Exam Narrative Exam Narrative: Older female who is alert and oriented person place time circumstance. She is in no distress. Currently pain-free. No shortness of breath. Lungs are clear to auscultation. Heart is regular rate and rhythm without murmur rub or gallop. Objective Objective Clinical Data: Vital Signs Temperature 36.3 C L 10/09/19 06:20 Temperature Source Temporal Artery Scan 10/09/19 06:20 Pulse 76 10/09/19 06:20 Pulse Rhythm Regular 10/09/19 01:19 Pulse 79 10/09/19 06:17 Respiratory Rate 18 10/09/19 06:20 Respiratory Effort 10/09/19 01:19 Respiratory Depth Normal 10/09/19 01:19 Respiratory Pattern Normal 10/09/19 01:19 Blood Pressure 156/64 H 10/09/19 06:20 Blood Pressure Mean 90 10/09/19 06:17 Blood Pressure Position Supine 10/07/19 21:20 Pulse Oximetry 99 10/09/19 06:20 Oxygen Delivery Method Room Air 10/09/19 06:20 Oxygen Flow Rate 0 10/09/19 06:20 Pain Level 0 10/08/19 23:00 Intake & Output 10/08/19 10/08/19 10/09/19 11:59 23:59 11:59 Intake Total 163.592 / 607.184 443.592 / 607.184 Output Total 1050 / 1700 650 / 1700 650 / 650 Balance -886.408 / -1092.816 -206.408 / -1092.816 -650 / -650 Weight 48.3 kg Intake: IV 63.592 / 127.184 63.592 / 127.184 Oral 100 / 480 380 / 480 Output: Urine 1050 / 1700 650 / 1700 650 / 650 Other: Urine Color Yellow Pale Yellow Yellow Urine Appearance Clear Clear Clear Urine Odor Normal None None Voiding Methods Bedside Commode Bedside Commode Bedside Commode Laboratory Results WBC 8.27 k/cumm (4.4-10.8) 10/07/19 17:30 RBC 4.31 m/cumm (4.00-5.20) 10/07/19 17:30 Hgb 13.1 g/dL (12.0-15.5) 10/07/19 17:30 Hct 39.2 % (36.0-46.0) 10/07/19 17:30 MCV 91.0 fL (80-95) 10/07/19 17:30 MCH 30.4 pg (27.0-33.0) 10/07/19 17:30 MCHC 33.4 g/dL (32.0-36.0) 10/07/19 17:30 RDW 13.1 % (11.7-14.6) 10/07/19 17:30 Plt Count 217 x1000/uL (130-400) 10/07/19 17:30 MPV 10.4 fL (8.0-11.0) 10/07/19 17:30 Immature Gran % 0.0 % 10/07/19 17:30 Neutrophils % 43.0 10/07/19 17:30 Lymphocytes % 43.0 10/07/19 17:30 Atypical Lymphs % 5 10/07/19 17:30 Monocytes % 6.0 10/07/19 17:30 Eosinophils % 2.0 10/07/19 17:30 Basophils % 1.0 10/07/19 17:30 Absolute Neutrophils 3.56 k/cumm (1.2-6.7) 10/07/19 17:30 Absolute Lymphocytes 3.97 k/cumm (1.2-3.4) H 10/07/19 17:30 Absolute Monocytes 0.50 k/cumm (0.11-0.7) 10/07/19 17:30 Absolute Eosinophils 0.17 k/cumm (0.0-0.7) 10/07/19 17:30 Absolute Basophils 0.08 k/cumm (0.0-0.2) 10/07/19 17:30 Differential Comment Manual differential 10/07/19 17:30 RBC Morphology Normal 10/07/19 17:30 APTT 45.1 sec (21.0-31.4) H D 10/08/19 06:05 Sodium 139 mmol/L (136-145) 10/07/19 17:30 Potassium 3.9 mmol/L (3.5-5.1) 10/07/19 17:30 Chloride 104 mmol/L (98-107) 10/07/19 17:30 Carbon Dioxide 29.2 mmol/L (21.0-32.0) 10/07/19 17:30 Anion Gap 5.8 mmol/L (3-11) 10/07/19 17:30 BUN 16 mg/dL (7-18) 10/07/19 17:30 Creatinine 1.03 mg/dL (0.55-1.02) H 10/07/19 17:30 Estimated GFR/1.73 m2 52.67 (mL/min/1.73m2) 10/07/19 17:30 Glucose 110 mg/dL (74-106) H 10/07/19 17:30 Hemoglobin A1c 5.9 % (3.8-5.6) H 10/08/19 06:05 Calcium 9.1 mg/dL (8.5-10.1) 10/07/19 17:30 Magnesium 2.1 mg/dL (1.8-2.4) 05/04/20 17:30 Total Bilirubin 0.3 mg/dL (0.2-1.0) 10/07/19 17:30 AST 14 U/L (15-37) L 10/07/19 17:30 ALT 21 U/L (14-59) 10/07/19 17:30 Alkaline Phosphatase 98 U/L (46-116) 10/07/19 17:30 Troponin I < 0.05 ng/Ml (<0.06) 10/08/19 06:05 NT-Pro-B Natriuret Pep 198 pg/mL (<300) 10/07/19 17:30 Total Protein 7.4 g/dL (6.4-8.2) 10/07/19 17:30 Albumin 3.8 g/dL (3.4-5.0) 10/07/19 17:30 Triglycerides 40 mg/dL (<150) 10/08/19 06:05 Total Cholesterol 227 mg/dL (<200) H 10/08/19 06:05 LDL Cholesterol, Calc 166 mg/dL (<100) H 10/08/19 06:05 HDL Cholesterol 53 mg/dL (40-60) 10/08/19 06:05 TSH 2.21 uIU/mL (0.36-3.74) 10/07/19 17:30 Urine Color Yellow (Yellow) 10/07/19 18:45 Urine Clarity Clear (Clear) 10/07/19 18:45 Urine pH 7.0 (5-8) 10/07/19 18:45 Ur Specific [place] 1.020 (1.005-1.025) 10/07/19 18:45 Urine Protein Negative mg/dL (Negative) 10/07/19 18:45 Urine Ketones Negative mg/dL (Negative) 10/07/19 18:45 Urine Blood Trace-intact (Negative) H 10/07/19 18:45 Urine Nitrite Negative (Negative) 10/07/19 18:45 Urine Bilirubin Negative (Negative) 10/07/19 18:45 Urine Urobilinogen 0.2 EU/dL (Up TO 0.2) 10/07/19 18:45 Ur Leukocyte Esterase Negative (Negative) 10/07/19 18:45 Urine RBC 0-2 HPF (0-2) 10/07/19 18:45 Urine WBC Negative HPF (0-5) 10/07/19 18:45 Ur Epithelial Cells Rare HPF (Negative) 10/07/19 18:45 Urine Crystals Negative HPF (Negative) 10/07/19 18:45 Urine Bacteria Negative HPF (Negative) 10/07/19 18:45 Urine Casts Negative LPF (Negative) 10/07/19 18:45 Urine Mucus Negative (Negative) 10/07/19 18:45 Ur Culture Indicated? No 10/07/19 18:45 Urine Glucose Negative mg/dL (Negative) 10/07/19 18:45 COVID-19 PCR Negative (Negative) 10/07/19 18:30 Nasopharyn COVID-19 PCR Not Applicable 10/07/19 18:30 Ref Test Perform Site [facility] hospital lab 10/07/19 18:30
--- NOTE | 2019-10-09 13:30 | PDOC.CMDIS ---
- If Service Date Differs Date of service: 10/09/19 Time of Service: 13:30 LACE Index Scoring Tool - Questions: Length of Stay (in days): 2 Acuity (Admit via E.D.?): Yes E.D. Visits: 1 - Answers: Total Score: 6 Risk of Readmission: Low Risk Care Management Discharge Reason for Hospitalization: Chest Pain Discharge Plan: Colleen is being transfered to [facility] to cardiology today she has notified her family she has an advance directive which scanned and provided copies. Colleen's family picked up her vehicle today. Patient/Family Education Needs: Transfer, limitations and expectations.
--- NOTE | 2019-10-09 13:41 | W.NUTRFU ---
Date of service: 10/09/19 Time of Service: 13:41 Nutritional Follow up NOTE: 74 year old female admitted to ICU for chest pain, SOB 2-3 wseeks. Covid 19 negative. BMI wnl. Following regular meal plan with excellent intake. Not at risk for nutritional decline at this time. Time Spent in Nutritional Counseling and Treatment: 0 time spent face to face
--- NOTE | 2019-10-09 14:42 | CHAPLAIN ---
When I met with Colleen yesterday, she thought she was being discharged later in the day, but plans changed and she is being transferred to [facility] [place] cardioc[place]. She is calm, but nervous about what's ahead, and not family can go with her due to current visitation rules. Colleen seems relieved that Elke Matos, Wafer Substrate Tester, will call her on Monday to check in. Colleen is in touch with her son by phone and he'll call her there as well.
--- NOTE | 2019-10-09 15:00 | W.PM.DS.N ---
Date of service: 10/09/19 Time of Service: 15:01 DS: Diagnosis Discharge Diagnosis (1) Stable angina: Status: Acute Asessment and Plan: Patient ruled out for acute ND w/ negative troponin levels and underwent exercise treadmill testing w/out nuclear imaging. She had ischemic ST-T changes during peak exercise as noted below. She is being transferred to [facility] – [place] for further cardiac evaluation. Patient was started on ASA, lopressor and atorvastatin during her stay. (2) Abnormal stress test: Status: Acute Asessment and Plan: as above Discharge Plan Disposition Patient Disposition: [facility] Condition: Stable Discharge Details Chief Complaint: SOB Clinical Impression: Stable angina, Dyspnea on exertion Reason For Visit: CP Admit Date/Time: 10/07/19 19:48 Admit Provider: Yrn Pérez Attending Provider: Yrn Pérez Primary Care Provider: Dane Merino ED Provider: Skylar Lin Hospital Course Hospital Course: 74 yr old female w/ PMH of hypothyroidism. No hx of CAD. She presented w/ 2 wk hx of intermittent exertional chest pressure. She is a non-smoker w/ no hx of DM or HTN and no FH of premature CAD. Evaluation included serial EKG's that showed NSR w/ rSR' and later R wave transition. She has serial tropoinin I levels that intially was normal but 2nd troponin was indeterminate at 0.10 (normal <0.06) and final level was normal at <0.05. She has some epigastric discomfort after admission that was relieved by antacids. On October 07 she underwent gated exercise treadmill testing (GXT) w/out nuclear or echo imaging. She went 6 minutes and 31 seconds and achieved 7.8 METs and reached 89% of her predicated max. HR. She experienced ST horizontal depression in V3, V4, V5 associated w/ substernal chest tightness. These changes occurred during her peak exercise and in the immediate recovery period. Patient has remained free of any chest pain/pressure symptoms since her stress test and repeat EKG on 10/08 showed no acute injury or ischemia. After consultation w/ [facility] cardiology, they agreed to accept the patient to service of Dr. Lerner where the patient will have further evaluation including possible cardiac cath (vs repeat stress w/ imaging i.e, stress echo or stress MPI). Patient was treated w/ ASA, atorvastatin and lopressor. Home Meds and New Rx's Prescriptions: No Action levothyroxine 25 MCG tablet 25 mcg PO DIRECTED RF: 0 levothyroxine 50 MCG tablet 50 mcg PO DIRECTED RF: 0 cholecalciferol (vitamin D3) 1,000 UNIT capsule 1,000 unit PO DAILY RF: 0 Discharge Instructions Instructions: Acute Coronary Syndrome (DC) Activity:: Activity as Tolerated Equipment/Supplies:: No Equipment Needed Diet:: As Tolerated Discharge Orders Discharge Orders: Discharge Order (Routine); Ordered 10/09/19 Ordered By: Jose Guzman Discharge Data Discharge Date/Time-TO BE ENTERED AT DEPARTURE: 10/09/19 14:47 Discharge Comment: [facility] – [place] DS: Summary Status at Discharge Functional status at discharge: independent ambulation Overall status at discharge: patient is back to baseline Mental Status: mental status grossly normal Speech and Movement: speech and movement normal Mood: congruent mood Affect: normal affect Exam Narrative Exam Narrative: Older female who is alert and oriented person place time circumstance. She is in no distress. Currently pain-free. No shortness of breath. Lungs are clear to auscultation. Heart is regular rate and rhythm without murmur rub or gallop. Psych Mental Status: mental status grossly normal Speech and Movement: speech and movement normal Mood: congruent mood Affect: normal affect DS: Data Vitals/I&O Vitals and I&O: Vital Signs Temperature 37.1 C 10/09/19 14:43 Temperature Source Temporal Artery Scan 10/09/19 14:43 Pulse 83 10/09/19 14:35 Pulse Rhythm Regular 10/09/19 08:30 Pulse 85 10/09/19 12:33 Respiratory Rate 20 10/09/19 14:43 Respiratory Effort Non-Labored 10/09/19 08:30 Respiratory Depth Normal 10/09/19 08:30 Respiratory Pattern Normal 10/09/19 08:30 Blood Pressure 145/77 H 10/09/19 14:35 Blood Pressure Mean 95 10/09/19 14:35 Blood Pressure Position Supine 10/07/19 21:20 Pulse Oximetry 97 10/09/19 14:43 Oxygen Delivery Method Room Air 10/09/19 14:43 Oxygen Flow Rate 0 10/09/19 14:43 Pain Level 0 10/09/19 14:46 Intake & Output 10/08/19 10/09/19 10/09/19 23:59 11:59 23:59 Intake Total 443.592 / 607.184 240 / 840 600 / 840 Output Total 650 / 1700 1225 / 1750 525 / 1750 Balance -206.408 / -1092.816 -985 / -910 75 / -910 Weight 48.3 kg Intake: IV 63.592 / 127.184 Oral 380 / 480 240 / 840 600 / 840 Output: Urine 650 / 1700 1225 / 1750 525 / 1750 Other: Urine Color Pale Yellow Yellow Yellow Urine Appearance Clear Clear Clear Urine Odor None Normal Normal Stool Occult Blood Negative Stool Size Large Stool Characteristics Soft Formed Voiding Methods Bedside Commode Bedside Commode Bedside Commode [facility] Medical History Hypothyroidism (Chronic) Surgical History History of bilateral tubal ligation (Acute) Social History Smoking/Tobacco Use Status: Never Alcohol Intake: never Drug use: Never Substance use type: does not use Do you feel safe at home: Yes
== END 2019-10-09 14:47 | disposition short-term general hospital (02) ==
LOC: ER 19:28 → ICU 21:31
PROVIDERS: Admitting Provider General Practice; Emergency Provider Physician Assistant; PCP Physician Assistant Medical; Visit Provider Internal Medicine
DX: I20.8 Other forms of angina pectoris (principal); R94.39 Abnormal result of other cardiovascular function study; E03.9 Hypothyroidism, unspecified; Z82.49 Family history of ischemic heart disease and other diseases of the circulatory system
CPT/HCPCS: 36415; 71275; 80053; 80061; 93005; 93016; 93018; 96360; 96361; 99217; 99222; 99225; 99226; 99285; U0003; 81003; 81015; 83036; 83735; 83880; 84443; 84484; 85025; 85730; 93010; 93017; 93306; 99219; G0378; J3490